=== PATIENT | male | born 1950 | race African-American/Black ===

== ENCOUNTER 2020-04-02 19:21 | Inpatient (IN) | payer MEDICARE, OTHER ==
[~2020-04-02] VITALS: Ht 170.2 cm; Wt 67.6 kg
[2020-04-02 20:00] VITALS: BP 129/82
[2020-04-02 20:30] VITALS: BP 129/82
[2020-04-02] MEDS ORDERED: ONDANSETRON HCL 4MG/2ML INJ IV PRN (21:15)
[2020-04-02] MEDS ORDERED: LACTULOSE 20G/30ML UDC PO PRN (21:15)
[2020-04-02] MEDS ORDERED: MORPHINE SULFATE 2 MG/ML CPJ (NOT FOR IM USE) IV PRN (21:15)
[2020-04-02] MEDS ORDERED: CLONIDINE 0.1MG TABLET PO PRN (21:15)
[2020-04-02] MEDS ORDERED: ACETAMINOPHEN 325MG TABLET PO PRN ×2 (21:15)
[2020-04-02] MEDS ORDERED: DEXTROSE 50% WATER 50ML SYRINGE IV PRN (21:15)
[2020-04-02] MEDS ORDERED: SILV50CR31 TP (22:07)
[2020-04-03] MEDS ORDERED: VANCOMYCIN 1 G PREMIX 200 ML IV NR (01:30)
[2020-04-03] MEDS: HYDROCODONE/ACETAMINOPHEN 5/325MG TABLET PO PRN ×4 (05:08→21:59)
[2020-04-03 06:47] LABS: BASOPHILS % 0.4 % (0.0-2.0); EOSINOPHILS % 1.4 % (0.0-5.0); HEMATOCRIT. 37.9 % (42.0-52.0); LYMPHOCYTES % 38.4 % (20.0-50.0); MEAN CORPUSCULAR HEMOGLOBIN 30.6 pg (28.0-32.0); MEAN CORPUSCULAR VOLUME 89.4 fL (80.0-94.0); MONOCYTES % 11.2 % (2.0-8.0); NEUTROPHILS % 48.6 % (40.0-76.0); PLATELET 223 x1000/uL (130-400); RED BLOOD CELL COUNT 4.24 mill/uL (4.7-6.1); RED CELL DISTRIBUTION WIDTH 12.2 % (11.6-14.6)
[2020-04-03] MEDS: BLOOD SUGAR DIAGNOSTIC STRIP TEST SCH ×4 (06:47→21:45)
[2020-04-03 06:55] LABS: CHLORIDE 102 mEq/L (98-107)
[2020-04-03] MEDS: INSULIN LISPRO 100 UNITS/ML SUBCUT SCH ×4 (07:08→21:57)
[2020-04-03 08:00] VITALS: BP 110/67
[2020-04-03] MEDS: POLYETHYLENE GLYCOL 3350 (17GM) 1 DOSE PACK PO SCH (09:33)
[2020-04-03] MEDS: METFORMIN HCL 500MG TABLET PO SCH ×2 (09:33→16:09)
[2020-04-03] MEDS: GABAPENTIN 300MG CAPSULE PO SCH ×2 (13:54→21:47)
[2020-04-03] MEDS ORDERED: LACTULOSE 20G/30ML UDC PO PRN (17:30)
[2020-04-03] MEDS ORDERED: VANCOMYCIN 1250MG in DEXTROSE 5% WATER 250ML IV SCH (18:00)
[2020-04-03 20:00] VITALS: BP 147/72
[2020-04-03] MEDS ORDERED: VANCOMYCIN 1500MG in DEXTROSE 5% WATER 250ML IV SCH (20:00)
[2020-04-03] MEDS: INSULIN GLARGINE UD 100 UNITS/ML SYR SUBCUT SCH (21:46)
[2020-04-04] MEDS: GABAPENTIN 300MG CAPSULE PO SCH ×3 (05:33→21:17)
[2020-04-04] MEDS: INSULIN LISPRO 100 UNITS/ML SUBCUT SCH ×4 (06:07→21:28)
[2020-04-04] MEDS: BLOOD SUGAR DIAGNOSTIC STRIP TEST SCH ×4 (06:07→21:21)
[2020-04-04 06:26] LABS: BASOPHILS % 0.3 % (0.0-2.0); EOSINOPHILS % 1.7 % (0.0-5.0); HEMATOCRIT. 37.8 % (42.0-52.0); HEMOGLOBIN. 12.8 g/dL (14.0-18.0); LYMPHOCYTES % 45.8 % (20.0-50.0); MEAN CORPUSCULAR HEMOGLOBIN 30.5 pg (28.0-32.0); MEAN CORPUSCULAR VOLUME 89.8 fL (80.0-94.0); MEAN PLATELET VOLUME 8.8 fl (7.4-10.4); MONOCYTES % 11.8 % (2.0-8.0); NEUTROPHILS % 40.4 % (40.0-76.0); PLATELET 267 x1000/uL (130-400); RED BLOOD CELL COUNT 4.21 mill/uL (4.7-6.1); RED CELL DISTRIBUTION WIDTH 12.4 % (11.6-14.6)
[2020-04-04 06:49] LABS: CHLORIDE 105 mEq/L (98-107)
[2020-04-04 06:56] LABS: PHOSPHORUS 3.5 mg/dL (2.5-4.9)
[2020-04-04 06:57] LABS: LDL CHOLESTEROL 88 mg/dL (5-100)
[2020-04-04 07:00] LABS: HDL CHOLESTEROL 43 mg/dL (40-59); PROSTRATE SPECIFIC AG TOTAL 1.17 ng/mL (0.0-4.0); TOTAL IRON BINDING CAPACITY 224 ug/dL (250-450)
[2020-04-04 07:02] LABS: CREATINE KINASE 33 IU/L (39-308)
[2020-04-04 08:12] LABS: FOLIC ACID (FOLATE) SERUM 15.4 ng/mL (>5.38)
[2020-04-04] MEDS: METFORMIN HCL 500MG TABLET PO SCH ×2 (08:58→18:07)
[2020-04-04] MEDS: HYDROCODONE/ACETAMINOPHEN 5/325MG TABLET PO PRN (09:02)
[2020-04-04] MEDS: POLYETHYLENE GLYCOL 3350 (17GM) 1 DOSE PACK PO SCH (09:03)
[2020-04-04] MEDS: INSULIN GLARGINE UD 100 UNITS/ML SYR SUBCUT SCH ×2 (10:31→21:28)
[2020-04-04] MEDS ORDERED: CYANOCOBALAMIN 1000MCG/ML VIAL IM NR (15:00)
[2020-04-04] MEDS: HYDROCODONE/ACETAMINOPHEN 10/325MG TABLET PO PRN ×2 (16:18→21:18)
[2020-04-04 20:00] VITALS: BP 116/70
[2020-04-04] MEDS: BISACODYL 5MG TABLET PO PRN (21:25)
[2020-04-05] MEDS ORDERED: NA PHOS,M-B/NA PHOS,DI-BA ENEMA 118ML PR NR (02:00)
[2020-04-05] MEDS: BLOOD SUGAR DIAGNOSTIC STRIP TEST SCH ×4 (05:31→21:53)
[2020-04-05] MEDS: GABAPENTIN 300MG CAPSULE PO SCH ×3 (05:31→21:52)
[2020-04-05 08:00] VITALS: BP 124/76
[2020-04-05] MEDS: INSULIN LISPRO 100 UNITS/ML SUBCUT SCH ×3 (08:12→17:17)
[2020-04-05] MEDS: POLYETHYLENE GLYCOL 3350 (17GM) 1 DOSE PACK PO SCH (08:16)
[2020-04-05] MEDS: METFORMIN HCL 500MG TABLET PO SCH ×2 (08:16→17:04)
[2020-04-05] MEDS: HYDROCODONE/ACETAMINOPHEN 10/325MG TABLET PO PRN (08:38)
[2020-04-05] MEDS ORDERED: SORBITOL 70% SOLN 30ML PO SCH (09:45)
[2020-04-05] MEDS: INSULIN GLARGINE UD 100 UNITS/ML SYR SUBCUT SCH ×2 (10:26→21:59)
[2020-04-05] MEDS ORDERED: NALOXONE HCL 0.4 MG/ML 1ML VIAL IV PRN (12:15)
[2020-04-05] MEDS ORDERED: INSULIN LISPRO 100 UNITS/ML SUBCUT SCH (13:00)
[2020-04-05] MEDS: OXYCODONE HCL 5MG TABLET PO SCH ×3 (13:12→21:53)
[2020-04-05] MEDS: INSULIN LISPRO (CUSTOM DOSE) 100 UNITS/ML SUBCUT SCH ×2 (13:17→17:00)
[2020-04-05 20:00] VITALS: BP 126/73
[2020-04-06] MEDS: HYDROCODONE/ACETAMINOPHEN 10/325MG TABLET PO PRN ×2 (03:24→12:38)
[2020-04-06] MEDS: BLOOD SUGAR DIAGNOSTIC STRIP TEST SCH ×4 (05:46→21:00)
[2020-04-06] MEDS: GABAPENTIN 300MG CAPSULE PO SCH ×4 (05:46→23:33)
[2020-04-06] MEDS: INSULIN LISPRO (CUSTOM DOSE) 100 UNITS/ML SUBCUT SCH ×3 (06:15→17:00)
[2020-04-06] MEDS: INSULIN LISPRO 100 UNITS/ML SUBCUT SCH ×3 (06:22→17:39)
[2020-04-06 06:45] LABS: T4 FREE 1.08 ng/dL (0.76-1.46)
[2020-04-06 08:00] VITALS: BP 106/70
[2020-04-06] MEDS: POLYETHYLENE GLYCOL 3350 (17GM) 1 DOSE PACK PO SCH (08:49)
[2020-04-06] MEDS: METFORMIN HCL 500MG TABLET PO SCH ×2 (08:49→17:31)
[2020-04-06] MEDS: OXYCODONE HCL 5MG TABLET PO SCH (08:55)
[2020-04-06] MEDS: INSULIN GLARGINE UD 100 UNITS/ML SYR SUBCUT SCH ×2 (11:13→22:08)
[2020-04-06 20:00] VITALS: BP 140/70
[2020-04-06] MEDS: OXYCODONE HCL 10MG TABLET SR 12HR PO SCH (22:01)
[2020-04-07] MEDS: GABAPENTIN 300MG CAPSULE PO SCH ×3 (06:00→17:40)
[2020-04-07] MEDS: BLOOD SUGAR DIAGNOSTIC STRIP TEST SCH ×4 (06:00→21:23)
[2020-04-07] MEDS: INSULIN LISPRO (CUSTOM DOSE) 100 UNITS/ML SUBCUT SCH ×3 (06:01→17:43)
[2020-04-07] MEDS: INSULIN LISPRO 100 UNITS/ML SUBCUT SCH ×3 (06:03→17:44)
[2020-04-07 08:29] VITALS: BP 130/78
[2020-04-07] MEDS: POLYETHYLENE GLYCOL 3350 (17GM) 1 DOSE PACK PO SCH (09:13)
[2020-04-07] MEDS: OXYCODONE HCL 10MG TABLET SR 12HR PO SCH ×2 (09:14→21:22)
[2020-04-07] MEDS: METFORMIN HCL 500MG TABLET PO SCH ×2 (09:14→17:40)
[2020-04-07] MEDS: HYDROCODONE/ACETAMINOPHEN 10/325MG TABLET PO PRN (10:57)
[2020-04-07 20:00] VITALS: BP 132/70
[2020-04-07] MEDS ORDERED: INSULIN GLARGINE UD 100 UNITS/ML SYR SUBCUT SCH (22:00)
[2020-04-08] MEDS: GABAPENTIN 300MG CAPSULE PO SCH ×5 (00:39→23:45)
[2020-04-08] MEDS: INSULIN GLARGINE UD 100 UNITS/ML SYR SUBCUT SCH ×3 (01:12→21:47)
[2020-04-08] MEDS: BLOOD SUGAR DIAGNOSTIC STRIP TEST SCH ×4 (06:18→21:00)
[2020-04-08] MEDS: INSULIN LISPRO (CUSTOM DOSE) 100 UNITS/ML SUBCUT SCH ×3 (06:50→17:00)
[2020-04-08 08:00] VITALS: BP 120/64
[2020-04-08] MEDS: POLYETHYLENE GLYCOL 3350 (17GM) 1 DOSE PACK PO SCH (08:56)
[2020-04-08] MEDS: METFORMIN HCL 500MG TABLET PO SCH ×2 (08:56→17:10)
[2020-04-08] MEDS: OXYCODONE HCL 10MG TABLET SR 12HR PO SCH ×2 (08:56→21:45)
[2020-04-08] MEDS: INSULIN LISPRO 100 UNITS/ML SUBCUT SCH ×3 (08:59→17:28)
[2020-04-08] MEDS: HYDROCODONE/ACETAMINOPHEN 10/325MG TABLET PO PRN (17:11)
[2020-04-08 20:14] VITALS: BP 147/77
[2020-04-08 20:50] LABS: *AMPHETAMINES SCREEN URINE NEGATIVE (NEGATIVE); *BARBITURATES SCREEN URINE NEGATIVE (NEGATIVE); CANNABINOID URINE SCREEN NEGATIVE (NEGATIVE); METHADONE URINE SCREEN NEGATIVE (NEGATIVE); OPIATES URINE SCREEN PRESUMTIVE POSITIVE (NEGATIVE); PHENCYCLIDINE URINE SCREEN NEGATIVE (NEGATIVE)
[2020-04-08 20:51] LABS: *BENZODIAZEPINES SCREEN URINE NEGATIVE (NEGATIVE); *COCAINE SCREEN URINE NEGATIVE (NEGATIVE)
[2020-04-09 05:19] LABS: CHLORIDE 103 mEq/L (98-107)
[2020-04-09 05:59] LABS: BASOPHILS % 0.2 % (0.0-2.0); EOSINOPHILS % 1.1 % (0.0-5.0); HEMATOCRIT. 36.2 % (42.0-52.0); HEMOGLOBIN. 12.4 g/dL (14.0-18.0); LYMPHOCYTES % 45.1 % (20.0-50.0); MEAN CORPUSCULAR HEMOGLOBIN 30.4 pg (28.0-32.0); MEAN PLATELET VOLUME 8.4 fl (7.4-10.4); MONOCYTES % 12.6 % (2.0-8.0); PLATELET 267 x1000/uL (130-400); RED BLOOD CELL COUNT 4.07 mill/uL (4.7-6.1); RED CELL DISTRIBUTION WIDTH 12.2 % (11.6-14.6)
[2020-04-09] MEDS: INSULIN LISPRO (CUSTOM DOSE) 100 UNITS/ML SUBCUT SCH ×3 (06:14→17:00)
[2020-04-09] MEDS: BLOOD SUGAR DIAGNOSTIC STRIP TEST SCH ×4 (06:14→21:02)
[2020-04-09] MEDS: GABAPENTIN 300MG CAPSULE PO SCH ×3 (06:14→17:28)
[2020-04-09] MEDS: INSULIN LISPRO 100 UNITS/ML SUBCUT SCH ×3 (06:18→17:34)
[2020-04-09 08:27] VITALS: BP 126/71
[2020-04-09] MEDS: METFORMIN HCL 500MG TABLET PO SCH ×2 (08:43→17:28)
[2020-04-09] MEDS: BISACODYL 5MG TABLET PO PRN (08:43)
[2020-04-09] MEDS: POLYETHYLENE GLYCOL 3350 (17GM) 1 DOSE PACK PO SCH (08:47)
[2020-04-09] MEDS: OXYCODONE HCL 10MG TABLET SR 12HR PO SCH ×2 (08:47→21:00)
[2020-04-09] MEDS: INSULIN GLARGINE UD 100 UNITS/ML SYR SUBCUT SCH (09:21)
[2020-04-09] MEDS ORDERED: HYDROCODONE/ACETAMINOPHEN 10/325MG TABLET PO PRN (12:00)
[2020-04-09] MEDS ORDERED: HYDROCODONE/ACETAMINOPHEN 10/325MG TABLET PO NR (12:00)
[2020-04-09 16:32] VITALS: BP 142/88
[2020-04-09 20:00] VITALS: BP 130/80
[2020-04-09 21:00] VITALS: BP 130/80
[2020-04-10] MEDS ORDERED: GABAPENTIN 300MG CAPSULE PO SCH
[2020-04-10] MEDS ORDERED: INSULIN GLARGINE UD 100 UNITS/ML SYR SUBCUT SCH (10:00)
[2020-04-10 13:10] LABS: 25-HYDROXY VITAMIN D3 14 ng/mL (.)
== END 2020-04-09 21:08 | disposition short-term general hospital (02) | DRG 157 ==
LOC: UNDODISIN 04-09 21:08 → 6EST 04-09 23:46
PROVIDERS: ADMIT Physical Medicine & Rehabilitation Spinal Cord Injury Medicine; ATTEND Internal Medicine Nephrology
DX: S02.641A Fracture of ramus of right mandible, initial encounter for closed fracture (principal); E43 Unspecified severe protein-calorie malnutrition; G92 Toxic encephalopathy; E87.1 Hypo-osmolality and hyponatremia; L03.115 Cellulitis of right lower limb; L03.116 Cellulitis of left lower limb; S82.832A Other fracture of upper and lower end of left fibula, initial encounter for closed fracture; D64.9 Anemia, unspecified; E11.628 Type 2 diabetes mellitus with other skin complications; E11.65 Type 2 diabetes mellitus with hyperglycemia; N28.9 Disorder of kidney and ureter, unspecified; R13.10 Dysphagia, unspecified; E11.42 Type 2 diabetes mellitus with diabetic polyneuropathy; E11.621 Type 2 diabetes mellitus with foot ulcer; R26.9 Unspecified abnormalities of gait and mobility; X58.XXXA Exposure to other specified factors, initial encounter; I10 Essential (primary) hypertension; R74.0 Nonspecific elevation of levels of transaminase and lactic acid dehydrogenase [LDH]; L97.529 Non-pressure chronic ulcer of other part of left foot with unspecified severity; Z59.0 Homelessness; Z79.4 Long term (current) use of insulin; Z79.84 Long term (current) use of oral hypoglycemic drugs; Z68.23 Body mass index [BMI] 23.0-23.9, adult; Y93.89 Activity, other specified; Y92.89 Other specified places as the place of occurrence of the external cause; Y99.8 Other external cause status
CPT/HCPCS: 36415; 70486; 70551; 73610; 73630; 74018; 80048; 80053; 80061; 80202; 80305; 80320; 82140; 82306; 82533; 82550; 82607; 82728; 82746; 82962; 83036; 83540; 83550; 83735; 84100; 84134; 84153; 84439; 84443; 85025; 86376; 87635; 92523; 92610; 93970; 97110; 97116; 97163; 97167; 97530; 97535; J1815; J2270; J3370; J3420; J7060; G0103; G0480

== ENCOUNTER 2020-04-09 20:50 | Inpatient (IN) | payer MEDICARE, OTHER ==
[~2020-04-09] VITALS: Ht 170.2 cm; Wt 81.6 kg
[~2020-04-09 20:50] MED LIST: SILV50CR31 TP
[2020-04-10 03:30] VITALS: BP 139/69
[2020-04-10] MEDS ORDERED: ACETAMINOPHEN 325MG TABLET PO PRN (07:15)
[2020-04-10] MEDS ORDERED: ONDANSETRON HCL 4MG/2ML INJ IV PRN (07:15)
[2020-04-10] MEDS ORDERED: CLONIDINE 0.1MG TABLET PO PRN (07:15)
[2020-04-10] MEDS ORDERED: DEXTROSE 50% WATER 50ML SYRINGE IV PRN (07:15)
[2020-04-10] MEDS ORDERED: NALOXONE HCL 0.4 MG/ML 1ML VIAL IV ONE (07:15)
[2020-04-10] MEDS ORDERED: BISACODYL 5MG TABLET PO PRN (07:15)
[2020-04-10] MEDS ORDERED: LACTULOSE 20G/30ML UDC PO PRN (07:15)
[2020-04-10] MEDS: BLOOD SUGAR DIAGNOSTIC STRIP TEST SCH ×4 (07:20→21:09)
[2020-04-10] MEDS: INSULIN LISPRO 100 UNITS/ML SUBCUT SCH ×6 (07:20→17:20)
[2020-04-10] MEDS ORDERED: NALOXONE HCL 0.4 MG/ML 1ML VIAL IV PRN (07:30)
[2020-04-10 08:00] VITALS: BP_SYST 166; BP_SYST 169; BP_DIAS 85; BP_DIAS 89
[2020-04-10] MEDS ORDERED: OXYCODONE HCL 5MG TABLET PO SCH (09:00)
[2020-04-10] MEDS: GABAPENTIN 300MG CAPSULE PO SCH ×3 (09:54→21:00)
[2020-04-10] MEDS: OXYCODONE HCL 10MG TABLET SR 12HR PO SCH ×2 (09:54→21:01)
[2020-04-10] MEDS: METFORMIN HCL 500MG TABLET PO SCH ×2 (09:54→17:43)
[2020-04-10] MEDS: POLYETHYLENE GLYCOL 3350 (17GM) 1 DOSE PACK PO SCH (09:55)
[2020-04-10] MEDS: INSULIN GLARGINE UD 100 UNITS/ML SYR SUBCUT SCH ×2 (10:00→22:09)
[2020-04-10 12:00] VITALS: BP 108/67
[2020-04-10] MEDS: AMLODIPINE 10MG TABLET PO SCH (12:45)
[2020-04-10 16:00] VITALS: BP 98/80
[2020-04-10 20:00] VITALS: BP 108/59
[2020-04-11] VITALS: BP 125/73
[2020-04-11] MEDS: GABAPENTIN 300MG CAPSULE PO SCH ×4 (03:54→21:16)
[2020-04-11 04:00] VITALS: BP 136/68
[2020-04-11 05:44] LABS: BASOPHILS % 0.4 % (0.0-2.0); CHLORIDE 104 mEq/L (98-107); EOSINOPHILS % 1.3 % (0.0-5.0); HEMATOCRIT. 36.8 % (42.0-52.0); HEMOGLOBIN. 12.3 g/dL (14.0-18.0); LYMPHOCYTES % 40.9 % (20.0-50.0); MEAN CORPUSCULAR HEMOGLOBIN 29.7 pg (28.0-32.0); MEAN CORPUSCULAR VOLUME 89.2 fL (80.0-94.0); MEAN PLATELET VOLUME 8.4 fl (7.4-10.4); MONOCYTES % 10.4 % (2.0-8.0); PLATELET 262 x1000/uL (130-400); RED BLOOD CELL COUNT 4.13 mill/uL (4.7-6.1); RED CELL DISTRIBUTION WIDTH 12.3 % (11.6-14.6)
[2020-04-11] MEDS: INSULIN LISPRO 100 UNITS/ML SUBCUT SCH ×6 (06:59→17:00)
[2020-04-11] MEDS: BLOOD SUGAR DIAGNOSTIC STRIP TEST SCH ×4 (06:59→21:16)
[2020-04-11] MEDS: POLYETHYLENE GLYCOL 3350 (17GM) 1 DOSE PACK PO SCH (09:00)
[2020-04-11] MEDS: AMLODIPINE 10MG TABLET PO SCH (09:26)
[2020-04-11] MEDS: OXYCODONE HCL 10MG TABLET SR 12HR PO SCH ×2 (09:26→21:16)
[2020-04-11] MEDS: METFORMIN HCL 500MG TABLET PO SCH ×2 (09:31→16:56)
[2020-04-11] MEDS: INSULIN GLARGINE UD 100 UNITS/ML SYR SUBCUT SCH ×2 (10:49→21:30)
[2020-04-11] MEDS: DOCUSATE SODIUM 100MG CAPSULE PO SCH (16:56)
[2020-04-11 20:00] VITALS: BP 143/76
[2020-04-11] MEDS: HYDROCODONE/ACETAMINOPHEN 10/325MG TABLET PO PRN (23:20)
[2020-04-12] VITALS: BP 127/75
[2020-04-12] MEDS: GABAPENTIN 300MG CAPSULE PO SCH ×4 (03:23→21:15)
[2020-04-12 04:00] VITALS: BP 131/84
[2020-04-12] MEDS: HYDROCODONE/ACETAMINOPHEN 10/325MG TABLET PO PRN ×2 (06:09→17:06)
[2020-04-12] MEDS: BLOOD SUGAR DIAGNOSTIC STRIP TEST SCH ×4 (06:36→21:18)
[2020-04-12] MEDS: INSULIN LISPRO 100 UNITS/ML SUBCUT SCH ×6 (06:38→17:15)
[2020-04-12 08:00] VITALS: BP 107/69
[2020-04-12] MEDS: AMLODIPINE 10MG TABLET PO SCH (08:29)
[2020-04-12] MEDS: POLYETHYLENE GLYCOL 3350 (17GM) 1 DOSE PACK PO SCH (08:50)
[2020-04-12] MEDS: OXYCODONE HCL 10MG TABLET SR 12HR PO SCH ×2 (08:51→21:15)
[2020-04-12] MEDS: METFORMIN HCL 500MG TABLET PO SCH ×2 (08:51→17:09)
[2020-04-12] MEDS: DOCUSATE SODIUM 100MG CAPSULE PO SCH ×2 (08:52→17:06)
[2020-04-12] MEDS: INSULIN GLARGINE UD 100 UNITS/ML SYR SUBCUT SCH ×2 (10:00→21:28)
[2020-04-12 12:00] VITALS: BP 135/79
[2020-04-12 16:00] VITALS: BP 106/59
[2020-04-12 20:00] VITALS: BP 118/67
[2020-04-13] VITALS: BP 134/75
[2020-04-13] MEDS: GABAPENTIN 300MG CAPSULE PO SCH ×4 (02:36→20:25)
[2020-04-13] MEDS: HYDROCODONE/ACETAMINOPHEN 10/325MG TABLET PO PRN ×2 (02:43→13:03)
[2020-04-13 04:00] VITALS: BP 133/74
[2020-04-13] MEDS: INSULIN LISPRO 100 UNITS/ML SUBCUT SCH ×6 (07:20→18:16)
[2020-04-13] MEDS: BLOOD SUGAR DIAGNOSTIC STRIP TEST SCH ×4 (07:31→20:25)
[2020-04-13 08:00] VITALS: BP 116/66
[2020-04-13] MEDS: DOCUSATE SODIUM 100MG CAPSULE PO SCH ×2 (08:49→17:46)
[2020-04-13] MEDS: POLYETHYLENE GLYCOL 3350 (17GM) 1 DOSE PACK PO SCH (08:49)
[2020-04-13] MEDS: METFORMIN HCL 500MG TABLET PO SCH ×2 (08:49→17:46)
[2020-04-13] MEDS: AMLODIPINE 10MG TABLET PO SCH (08:50)
[2020-04-13] MEDS: OXYCODONE HCL 10MG TABLET SR 12HR PO SCH ×2 (08:50→20:25)
[2020-04-13] MEDS: INSULIN GLARGINE UD 100 UNITS/ML SYR SUBCUT SCH ×2 (10:52→22:06)
[2020-04-13 12:00] VITALS: BP 158/90
[2020-04-13 16:00] VITALS: BP 115/62
[2020-04-13 20:00] VITALS: BP 121/66
[2020-04-14] VITALS: BP 140/73
[2020-04-14] MEDS: GABAPENTIN 300MG CAPSULE PO SCH ×4 (03:18→21:00)
[2020-04-14 04:00] VITALS: BP 151/73
[2020-04-14] MEDS: HYDROCODONE/ACETAMINOPHEN 10/325MG TABLET PO PRN (06:38)
[2020-04-14] MEDS: INSULIN LISPRO 100 UNITS/ML SUBCUT SCH ×6 (07:20→17:20)
[2020-04-14 08:00] VITALS: BP 131/71
[2020-04-14] MEDS: BLOOD SUGAR DIAGNOSTIC STRIP TEST SCH ×4 (08:11→21:58)
[2020-04-14] MEDS: METFORMIN HCL 500MG TABLET PO SCH ×2 (08:20→17:48)
[2020-04-14] MEDS: POLYETHYLENE GLYCOL 3350 (17GM) 1 DOSE PACK PO SCH (09:00)
[2020-04-14] MEDS: DOCUSATE SODIUM 100MG CAPSULE PO SCH ×2 (09:00→17:00)
[2020-04-14] MEDS: AMLODIPINE 10MG TABLET PO SCH (09:00)
[2020-04-14] MEDS: OXYCODONE HCL 10MG TABLET SR 12HR PO SCH ×2 (09:00→21:00)
[2020-04-14] MEDS ORDERED: PHENYLEPHRINE HCL 1% 15 ML NASAL SPRAY ONE (10:19)
[2020-04-14] MEDS: INSULIN GLARGINE UD 100 UNITS/ML SYR SUBCUT SCH ×2 (10:41→22:00)
[2020-04-14 12:00] VITALS: BP 150/76
[2020-04-14] MEDS ORDERED: SODIUM CHLORIDE 0.9% 1,000 ML IV SCH (12:00)
[2020-04-14 16:00] VITALS: BP 144/88
[2020-04-14] MEDS ORDERED: BUPIVACAINE HCL/PF 0.5% (5MG/ML) 10ML ONE (17:05)
[2020-04-14] MEDS ORDERED: BACITRACIN 50,000 UNITS/VIAL ONE (17:06)
[2020-04-14] MEDS ORDERED: LIDOCAINE HCL/EPINEPHRINE 1%-EPI 1:100,000 20 ML VIAL ONE (17:34)
[2020-04-14] MEDS ORDERED: FENTANYL CITRATE/PF 50MCG/ML 2ML VIAL ONE ×2 (17:47→17:57)
[2020-04-14] MEDS ORDERED: SUCCINYLCHOLINE CHLORIDE 200MG/10ML IV ONE (17:48)
[2020-04-14] MEDS ORDERED: MIDAZOLAM HCL 2 MG/2 ML VIAL ONE (17:48)
[2020-04-14] MEDS ORDERED: DEXAMETHASONE 4MG/ML 1ML VIAL ONE (17:48)
[2020-04-14] MEDS ORDERED: ONDANSETRON HCL 4MG/2ML INJ ONE (17:48)
[2020-04-14] MEDS ORDERED: PHENYLEPHRINE HCL 10 MG/ML 1ML (IV VIAL) IV ONE (17:48)
[2020-04-14] MEDS ORDERED: NEOSTIGMINE METHYLSULFATE 1MG/ML 10 ML VIAL ONE (17:48)
[2020-04-14] MEDS ORDERED: METOCLOPRAMIDE HCL 10MG/2ML VIAL ONE (17:48)
[2020-04-14] MEDS ORDERED: SODIUM CHLORIDE 0.9% 10ML VIAL ONE (17:48)
[2020-04-14] MEDS ORDERED: GLYCOPYRROLATE 0.2 MG/ML 2ML VIAL ONE ×2 (17:48→18:24)
[2020-04-14] MEDS ORDERED: LIDOCAINE HCL/PF 1% 10 MG/ML 5ML VIAL ONE (17:48)
[2020-04-14] MEDS ORDERED: PROPOFOL 200MG/20ML VIAL IV ONE (17:48)
[2020-04-14] MEDS ORDERED: ROCURONIUM BROMIDE 10MG/ML VIAL 5ML IV ONE ×2 (17:48→18:23)
[2020-04-14] MEDS ORDERED: CEFAZOLIN SODIUM 1000MG/VIAL ONE (17:48)
[2020-04-14] MEDS ORDERED: EPHEDRINE SULFATE 50MG/ML VIAL ONE (17:48)
[2020-04-14] MEDS ORDERED: ALBUMIN HUMAN 12.5G/250ML (5%) IV ONE (18:51)
[2020-04-14] MEDS ORDERED: SODIUM CHLORIDE 0.9% 1,000 ML IV ONE (19:13)
[2020-04-14] MEDS ORDERED: MORPHINE SULFATE 2 MG/ML CPJ (NOT FOR IM USE) IV PRN (19:15)
[2020-04-14] MEDS ORDERED: MEPERIDINE HCL/PF 25MG/ML CPJ IV PRN (19:15)
[2020-04-14] MEDS ORDERED: ONDANSETRON HCL 4MG/2ML INJ IV PRN (19:15)
[2020-04-14] MEDS ORDERED: HYDROMORPHONE PCA 10MG/50ML IV PRN (19:30)
[2020-04-14] MEDS ORDERED: ONDANSETRON INJ IV PRN (19:30)
[2020-04-14] MEDS ORDERED: NALOXONE INJ IV PRN (19:30)
[2020-04-14] MEDS ORDERED: LABETALOL 5MG/ML SYR 20 MG/4 ML SYRINGE IV ONE (19:45)
[2020-04-14] MEDS: HYDROMORPHONE HCL/PF 2MG/ML CPJ IV PRN ×3 (20:50→21:10)
[2020-04-14 21:30] VITALS: BP 137/73
[2020-04-14] MEDS: DIPHENHYDRAMINE INJ IV PRN (22:48)
[2020-04-15] VITALS: BP 140/87
[2020-04-15] MEDS: HYDROCODONE/ACETAMINOPHEN 10/325MG TABLET PO PRN (02:47)
[2020-04-15] MEDS: DEXT 5%/0.9% NACL 1,000 ML IV SCH ×2 (02:50→18:24)
[2020-04-15] MEDS: GABAPENTIN 300MG CAPSULE PO SCH ×4 (03:57→21:39)
[2020-04-15 04:00] VITALS: BP 156/90
[2020-04-15] MEDS: INSULIN LISPRO 100 UNITS/ML SUBCUT SCH ×6 (07:20→17:50)
[2020-04-15] MEDS: BLOOD SUGAR DIAGNOSTIC STRIP TEST SCH ×4 (07:42→20:49)
[2020-04-15 08:00] VITALS: BP 167/98
[2020-04-15] MEDS: DOCUSATE SODIUM 100MG CAPSULE PO SCH ×2 (08:49→17:45)
[2020-04-15] MEDS: METFORMIN HCL 500MG TABLET PO SCH ×2 (08:49→17:45)
[2020-04-15] MEDS: AMLODIPINE 10MG TABLET PO SCH (08:53)
[2020-04-15] MEDS: OXYCODONE HCL 10MG TABLET SR 12HR PO SCH ×3 (08:54→22:45)
[2020-04-15] MEDS: POLYETHYLENE GLYCOL 3350 (17GM) 1 DOSE PACK PO SCH (08:54)
[2020-04-15] MEDS: DIPHENHYDRAMINE INJ IV PRN (09:06)
[2020-04-15] MEDS: INSULIN GLARGINE UD 100 UNITS/ML SYR SUBCUT SCH ×2 (09:17→21:40)
[2020-04-15 12:00] VITALS: BP 135/86
[2020-04-15] MEDS: LOSARTAN POTASSIUM 50 MG TABLET PO SCH (13:39)
[2020-04-15] MEDS ORDERED: ACETAMINOPHEN 500MG TABLET PO PRN (13:45)
[2020-04-15] MEDS ORDERED: CEFAZOLIN 1000MG PREMIX 50 ML IV SCH (13:45)
[2020-04-15] MEDS ORDERED: HYDROCODONE/ACETAMINOPHEN 10/325MG TABLET PO PRN (15:00)
[2020-04-15] MEDS ORDERED: MORPHINE SULFATE 4 MG/ML CPJ (NOT FOR IM USE) IV PRN (15:00)
[2020-04-15] MEDS ORDERED: NALOXONE HCL 0.4 MG/ML 1ML VIAL IV PRN (15:15)
[2020-04-15] MEDS: TAMSULOSIN HCL 0.4MG SR CAPSULE PO SCH (15:46)
[2020-04-15 16:00] VITALS: BP 140/76
[2020-04-15] MEDS: CEFAZOLIN 1000MG PREMIX 50 ML IV SCH (18:24)
[2020-04-15 20:00] VITALS: BP 103/71
[2020-04-16] VITALS: BP 167/92
[2020-04-16] MEDS: CEFAZOLIN 1000MG PREMIX 50 ML IV SCH ×2 (01:11→09:20)
[2020-04-16] MEDS: GABAPENTIN 300MG CAPSULE PO SCH ×3 (02:57→14:17)
[2020-04-16 04:00] VITALS: BP 155/87
[2020-04-16] MEDS: OXYCODONE HCL 10MG TABLET SR 12HR PO SCH ×2 (06:35→14:18)
[2020-04-16] MEDS: INSULIN LISPRO 100 UNITS/ML SUBCUT SCH ×4 (07:20→11:38)
[2020-04-16] MEDS: BLOOD SUGAR DIAGNOSTIC STRIP TEST SCH ×2 (07:22→11:28)
[2020-04-16 08:00] VITALS: BP 145/73
[2020-04-16] MEDS: AMLODIPINE 10MG TABLET PO SCH (08:23)
[2020-04-16] MEDS: LOSARTAN POTASSIUM 50 MG TABLET PO SCH (08:23)
[2020-04-16] MEDS: TAMSULOSIN HCL 0.4MG SR CAPSULE PO SCH (08:23)
[2020-04-16] MEDS: METFORMIN HCL 500MG TABLET PO SCH (08:23)
[2020-04-16] MEDS: POLYETHYLENE GLYCOL 3350 (17GM) 1 DOSE PACK PO SCH (08:23)
[2020-04-16] MEDS: DOCUSATE SODIUM 100MG CAPSULE PO SCH (08:23)
[2020-04-16] MEDS: INSULIN GLARGINE UD 100 UNITS/ML SYR SUBCUT SCH (09:23)
[2020-04-16 12:00] VITALS: BP 98/64
[2020-04-16] MEDS: DEXT 5%/0.9% NACL 1,000 ML IV SCH (14:20)
[2020-04-16 15:12] VITALS: BP 105/69
== END 2020-04-16 15:51 | DRG 131 ==
LOC: 6EST 20:50
PROVIDERS: ADMIT Internal Medicine Nephrology; ATTEND Internal Medicine Nephrology
PROC: 0NST04Z Reposition Right Mandible with Internal Fixation Device, Open Approach (ICD-10-PCS; principal; 2020-04-09)
DX: S02.609A Fracture of mandible, unspecified, initial encounter for closed fracture (principal); E43 Unspecified severe protein-calorie malnutrition; G92 Toxic encephalopathy; E87.1 Hypo-osmolality and hyponatremia; S82.402A Unspecified fracture of shaft of left fibula, initial encounter for closed fracture; S82.892A Other fracture of left lower leg, initial encounter for closed fracture; D64.9 Anemia, unspecified; E11.42 Type 2 diabetes mellitus with diabetic polyneuropathy; Z20.828 Contact with and (suspected) exposure to other viral communicable diseases; I10 Essential (primary) hypertension; D72.829 Elevated white blood cell count, unspecified; L08.9 Local infection of the skin and subcutaneous tissue, unspecified; R13.10 Dysphagia, unspecified; Z68.28 Body mass index [BMI] 28.0-28.9, adult; Z59.0 Homelessness
CPT/HCPCS: 36415; 70486; 71045; 80048; 82962; 83036; 85025; 93005; 97116; 97162; 97164; 97165; C1713; J0330; J0690; J1100; J1170; J1200; J1815; J2175; J2250; J2270; J2370; J2405; J2704; J2710; J2765; J3010; J3490; J7030; J7042; P9041; U0003-CS